=== PATIENT | male | born 1970 | race Caucasian/White ===

== ENCOUNTER 2019-09-13 19:06 | Emergency (ER) | payer BC, OTHER ==
[~2019-09-13] VITALS: Ht 168 cm; Wt 93.2 kg
[2019-09-13] MEDS ORDERED: LISI40TA (19:16)
[2019-09-13] MEDS ORDERED: CITA20TA9 (19:16)
[2019-09-13] MEDS ORDERED: HYDR25TA4 (19:16)
[2019-09-13] MEDS ORDERED: WARF-48 (19:16)
[2019-09-13 19:31] LABS: BASOPHILS % (AUTO) 0 % (0-10); EOSINOPHILS % (AUTO) 0 % (0-10); HEMATOCRIT 45 % (40-54); HEMOGLOBIN 15.9 G/DL (13.3-17.7); LYMPHOCYTES # (AUTO) 1.4 X 10^3 (1.0-4.0); LYMPHOCYTES % (AUTO) 13 % (12-44); MEAN CORPUSCULAR HEMOGLOBIN 31 PG (25-34); MEAN CORPUSCULAR HGB CONC 35 G/DL (32-36); MEAN CORPUSCULAR VOLUME 89 FL (80-99); MONOCYTES % (AUTO) 9 % (0-12); NEUTROPHILS # (AUTO) 8.6 X 10^3 (1.8-7.8); NEUTROPHILS % (AUTO) 78 % (42-75); PLATELET COUNT 234 10^3/uL (130-400); RED CELL DISTRIBUTION WIDTH 14.1 % (10.0-14.5)
[2019-09-13 19:35] LABS: CHLORIDE 101 MMOL/L (98-107); POTASSIUM 3.1 MMOL/L (3.6-5.0); SODIUM 138 MMOL/L (135-145)
[2019-09-13 19:36] LABS: BILIRUBIN,URINE NEGATIVE (NEGATIVE); CLARITY,URINE CLEAR; COLOR,URINE YELLOW; GLUCOSE, URINE (UA) NEGATIVE (NEGATIVE); KETONES,URINE NEGATIVE (NEGATIVE); LEUKOCYTE ESTERASE ,URINE NEGATIVE (NEGATIVE); NITRITE,URINE NEGATIVE (NEGATIVE); PH,URINE 6.5 (5-9); PROTEIN,URINE TRACE (NEGATIVE)
[2019-09-13 19:36] LABS: CALCIUM 8.9 MG/DL (8.5-10.1); INR 2.6 (0.8-1.4); PROTHROMBIN TIME PATIENT 29.1 SEC (12.2-14.7)
[2019-09-13 19:37] LABS: GLUCOSE 168 MG/DL (70-105); TOTAL PROTEIN 6.7 GM/DL (6.4-8.2)
[2019-09-13 19:38] LABS: CARBON DIOXIDE 24 MMOL/L (21-32)
[2019-09-13 19:39] LABS: BILIRUBIN,TOTAL 0.5 MG/DL (0.1-1.0)
[2019-09-13 19:40] LABS: ALKALINE PHOSPHATASE 55 U/L (40-136)
[2019-09-13 19:41] LABS: CREATININE SERUM 1.28 MG/DL (0.60-1.30); GFR ESTIMATED 60
[2019-09-13 19:42] LABS: BUN/CREATININE RATIO 13
[2019-09-13 19:44] LABS: ALANINE AMINOTRANSFERASE 41 U/L (0-55)
[2019-09-13 19:57] LABS: AMPHETAMINE SCREEN, URINE NEGATIVE (NEGATIVE); BARBITURATE SCREEN URINE NEGATIVE (NEGATIVE); BENZODIAZEPINES SCREEN URINE NEGATIVE (NEGATIVE); CANNABINOID SCREEN, URINE NEGATIVE (NEGATIVE); COCAINE SCREEN URINE NEGATIVE (NEGATIVE); METHADONE STAT NEGATIVE (NEGATIVE); METHAMPHETAMINE SCREEN URINE S NEGATIVE (NEGATIVE); OPIATE SCREEN URINE NEGATIVE (NEGATIVE); OXYCODONE STAT NEGATIVE (NEGATIVE); PROPOXYPHENE STAT NEGATIVE (NEGATIVE); TRICYCLIC ANTIDEPRESSANTS SCRE NEGATIVE (NEGATIVE)
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
[2019-09-13 20:04] LABS: AMORPHOUS SEDIMENT,UR RARE AMOR URATES /LPF; BACTERIA,URINE NEGATIVE /HPF
[2019-09-13] MEDS ORDERED: KCL 10 MEQ TAB (MICRO K) PO ONE (20:15)
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
[2019-09-13 20:39] VITALS: BP 116/74
--- OUTSIDE RECORDS SUMMARY | 2019-09-13 21:26 | XMS REPORT ---
Author Author Michael THOMAS Organization [facility] Address [address] [address] Care Team Providers Care Dust Collector Name Role Phone LIEN THOMAS Unavailable PROBLEMS Type Condition ICD9-CM Code IDU13-FR Code Onset Dates Condition S tatus SNOMED Code Problem Gastroesophageal reflux disease without esophagitis K21.9 Active 713583435 Problem Anticoagulant long-term use Z79.01 Ac tive [id number] ALLERGIES No Information ENCOUNTERS Encounter Location Date Diagnosis [place] [address] [place] [id number] [address] [address] [address] Apr Gastroesophageal reflux disease without esophagitis K21.9 and Anticoagulant long-term use Z79.[address] [address] Apr Gastroesophageal reflux disease without esophagitis K21.9 IMMUNIZATIONS No Known Immunizations SOCIAL HISTORY Never Assessed REASON FOR VISIT PLAN OF CARE VITAL SIGNS MEDICATIONS Medication Instructions Dosage Frequency Start Date End Date Duration S tatus Warfarin Sodium 5 MG Orally Once a day 1 tablet 24h Jun, 30 day(s) Active RESULTS No Results PROCEDURES No Known procedures INSTRUCTIONS MEDICATIONS ADMINISTERED No Known Medications MEDICAL (GENERAL) HISTORY Type Description Date Medical History hypertension Medical History factor 5 Medical History depression
--- OUTSIDE RECORDS SUMMARY | 2019-09-13 21:26 | XMS REPORT | Continuity of Care Document ---
Author Organization Unknown Address Unknown Phone Unavailable Allergies There is no data. Medications There is no data. Problems There is no data. Procedures There is no data. Results Test Result Range PT/INR - 08/10/19 08:09 INR 2.2 NRG PT 21.9 sec 9.0-11.5 PERIPHERAL BLOOD SMEAR - 09/04/19 16:34 PATHOLOGIST REVIEW OF PERIPHERAL SMEAR NRG Encounters ACCT No. Visit Date/Time Discharge Status Pt. Type Provider Facility Loc./Unit Complaint [id number] 09/04/2019 16:30:00 09/04/2019 23:59: 59 CLS Outpatient [facility] LASHANDA MELGAR [facility] [id number] 09/04/2019 16:30:00 Document Registration [id number] 08/10/2019 08:00:00 Document Registration
--- OUTSIDE RECORDS SUMMARY | 2019-09-13 21:26 | XMS REPORT ---
Author Author Michael DANIEL Organization [facility] Address [address] [address] Care Team Providers Care Building Code Administrator Name Role Phone JEANNIE DANIEL Unavailable PROBLEMS Type Condition ICD9-CM Code PDF50-FR Code Onset Dates Condition S tatus SNOMED Code Problem Gastroesophageal reflux disease without esophagitis K21.9 Active 819671626 Problem Anticoagulant long-term use Z79.01 Ac tive [id number] ALLERGIES No Information ENCOUNTERS Encounter Location Date Diagnosis [address] [address] [address] [address] [address] Apr Gastroesophageal reflux disease without esophagitis K21.9 and Anticoagulant long-term use Z79.[address] [address] Apr Gastroesophageal reflux disease without esophagitis K21.9 IMMUNIZATIONS No Known Immunizations SOCIAL HISTORY Never Assessed REASON FOR VISIT PLAN OF CARE VITAL SIGNS MEDICATIONS Medication Instructions Dosage Frequency Start Date End Date Duration S tatus Warfarin Sodium 5 MG Orally Once a day 1 tablet 24h 90 days Active RESULTS No Results PROCEDURES No Known procedures INSTRUCTIONS MEDICATIONS ADMINISTERED No Known Medications MEDICAL (GENERAL) HISTORY Type Description Date Medical History hypertension Medical History factor 5 Medical History depression
== END 2019-09-13 20:39 | disposition home or self-care (01) ==
LOC: ER 19:11
DX: S20.212A Contusion of left front wall of thorax, initial encounter (principal); S00.83XA Contusion of other part of head, initial encounter; R55 Syncope and collapse; E87.6 Hypokalemia; Z79.01 Long term (current) use of anticoagulants; Y04.0XXA Assault by unarmed brawl or fight, initial encounter
CPT/HCPCS: 36415; 70450; 71045; 72125; 80053; 80306; 80320; 81000; 84484; 85025; 85610; 93005; 93041

== ENCOUNTER 2020-11-19 11:48 | Emergency (ER) | payer BC ==
[~2020-11-19] VITALS: Ht 167 cm; Wt 95.0 kg
[~2020-11-19 11:48] MED LIST: CITA20TA9; HYDR25TA4; LISI40TA9; WARF-48
[2020-11-19 12:34] LABS: WHITE BLOOD COUNT 4.4 10^3/uL (4.3-11.0)
--- NOTE | 2020-11-19 12:34 | Diagnostic Imaging Report ---
INDICATION: Shortness of breath and Covid-19 positive. TIME OF EXAM: 12:14 PM Correlation is made with prior chest from 09/13/2019. FINDINGS: The heart size is normal. The pulmonary vascularity is unremarkable. The lungs are clear. No infiltrate, effusion or pneumothorax is detected. IMPRESSION: No acute cardiopulmonary process is detected. Dictated by: Dictated on workstation # [id number]
[2020-11-19 12:35] LABS: BASOPHILS % (AUTO) 0 % (0-10); EOSINOPHILS % (AUTO) 0 % (0-10); HEMATOCRIT 47 % (40-54); HEMOGLOBIN 16.2 G/DL (13.3-17.7); LYMPHOCYTES # (AUTO) 0.9 X 10^3 (1.0-4.0); LYMPHOCYTES % (AUTO) 21 % (12-44); MEAN CORPUSCULAR HEMOGLOBIN 31 PG (25-34); MEAN CORPUSCULAR HGB CONC 35 G/DL (32-36); MEAN CORPUSCULAR VOLUME 90 FL (80-99); MONOCYTES # (AUTO) 0.4 X 10^3 (0.0-1.0); MONOCYTES % (AUTO) 9 % (0-12); NEUTROPHILS # (AUTO) 3.1 X 10^3 (1.8-7.8); NEUTROPHILS % (AUTO) 69 % (42-75); PLATELET COUNT 151 10^3/uL (130-400)
[2020-11-19 12:56] LABS: POTASSIUM 3.3 MMOL/L (3.6-5.0); SODIUM 137 MMOL/L (135-145)
[2020-11-19 12:57] LABS: ALANINE AMINOTRANSFERASE 44 U/L (0-55); ALBUMIN 4.4 GM/DL (3.2-4.5); ALKALINE PHOSPHATASE 62 U/L (40-136); BILIRUBIN,TOTAL 0.4 MG/DL (0.1-1.0); BUN/CREATININE RATIO 13; CALCIUM 9.1 MG/DL (8.5-10.1); CARBON DIOXIDE 27 MMOL/L (21-32); CHLORIDE 97 MMOL/L (98-107); CREATININE SERUM 1.24 MG/DL (0.60-1.30); GFR ESTIMATED 62; GLUCOSE 127 MG/DL (70-105); TOTAL PROTEIN 7.3 GM/DL (6.4-8.2)
[2020-11-19 13:02] LABS: INR 1.9 (0.8-1.4); PROTHROMBIN TIME PATIENT 21.8 SEC (12.2-14.7)
[2020-11-19] MEDS ORDERED: ENOXAPARIN 100 MG/1 ML (LOVENOX) SYR SC ONE (13:15)
--- NOTE | 2020-11-19 13:17 | ED Cough/URI ---
General Chief Complaint: Respiratory Problems Stated Complaint: COVID+; COUGH; CHEST TIGHTNESS Nursing Triage Note: PT REPORTS HE WAS DIAGNOSED WITH COVID ON TUESDAY AT THE URGENT CARE. HE STARTED WITH SINUS TYPE SYMPTOMS. HE WORKED OUTSIDE AT HOME YESTERDAY AND STARTED NOTICING HE WAS GETTING SOB W/ EXERTION. HE REPORTS HIS CHEST HURTS WITH INSPIRATION. NO FEVER SINCE TUESDAY (99). Source: patient Exam Limitations: no limitations History of Present Illness Date Seen by Provider: Nov 19, 2020 Time Seen by Provider: 12:30 Initial Comments Patient is a 50-year-old Covid positive patient diagnosed 2 days ago with known history of CAD and factor V Leyden deficiency who presents with left-sided parasternal chest pain/tightness worse with deep inspiration and exertion. Patient does not have chest pain at rest or with mild exertion. Reports mild dyspnea with exertion. Reports headache, tactile fever and sweats. No nausea or vomiting. No abdominal pain. No constipation or diarrhea. Patient states symptoms feel different than his previous coronary syndrome. He is compliant with his medications and Coumadin. Denies leg pain or swelling. No other acute symptoms or complaints. Timing/Duration: yesterday, intermittent, gone now Severity/Quality: mild Prior Episodes/Possible Cause: other Modifying Factors: Improves With Other Associated Symptoms: other Allergies and Home Medications Allergies Coded Allergies: No Known Drug Allergies (Unverified , 09/13/19) Patient Home Medication List Home Medication List Reviewed: Yes Review of Systems Review of Systems Constitutional: see HPI EENTM: see HPI Respiratory: see HPI Cardiovascular: see HPI Gastrointestinal: see HPI Genitourinary: see HPI Musculoskeletal: see HPI Skin: see HPI Psychiatric/Neurological: See HPI Hematologic/Lymphatic: See HPI Immunological/Allergic: see HPI All Other Systems Reviewed Negative Unless Noted: Yes Past Hrbbtkq-Bhhmqt-Yzclyf Hx Patient Social History Tobacco Use?: No Use of E-Cig and/or Vaping dev: No Substance use?: No Alcohol Use?: Yes Alcohol type: Beer Alcohol Frequency: Couple times a week Pt feels they are or have been: No Immunizations Up To Date Tetanus Booster (TDap): Unknown Seasonal Allergies Seasonal Allergies: No Past Medical History Surgery/Hospitalization HX: PT HAS FACTOR V AND ON COUMADIN. Surgeries: Yes (laceration repair left leg) Respiratory: No Cardiac: Yes Hypertension Neurological: No Genitourinary: No Gastrointestinal: No Musculoskeletal: No Endocrine: No HEENT: No Cancer: No Psychosocial: Yes Anxiety Integumentary: No Blood Disorders: Yes (factor 5) Physical Exam Vital Signs - First Documented 11/19/20 11:48 Temp 36.4 Pulse 75 Resp 20 B/P (MAP) 126/65 (85) Pulse Ox 99 O2 Delivery Room Air Capillary Refill : Less Than 3 Seconds Height: '" Weight: lbs. oz. kg; 34.00 BMI Method: General Appearance: WD/WN Eyes: Bilateral Eye Normal Inspection, Bilateral Eye PERRL, Bilateral Eye EOMI HEENT: PERRL/EOMI, normal ENT inspection, pharynx normal Neck: non-tender, full range of motion, supple Respiratory: chest non-tender, lungs clear Cardiovascular: regular rate, rhythm Skin: normal color Focused Exam Sepsis Stage: Ruled Out Progress/Results/Core Measures Suspected Sepsis SIRS Temperature: Pulse: 75 Respiratory Rate: 20 Laboratory Tests 11/19/20 12:15: White Blood Count 4.4 Blood Pressure 126 /65 Mean: 85 Laboratory Tests 11/19/20 12:15: Creatinine 1.24, INR Comment 1.9H, Platelet Count 151, Total Bilirubin 0.4 Results/Orders Lab Results Laboratory Tests Test 11/19/20 12:15 Range/Units White Blood Count 4.4 4.3-11.0 10^3/uL Red Blood Count 5.15 4.35-5.85 10^6/uL Hemoglobin 16.2 13.3-17.7 G/DL Hematocrit 47 40-54 % Mean Corpuscular Volume 90 80-99 FL Mean Corpuscular Hemoglobin 31 25-34 PG Mean Corpuscular Hemoglobin Concent 35 32-36 G/DL Red Cell Distribution Width 13.2 10.0-14.5 % Platelet Count 151 130-400 10^3/uL Mean Platelet Volume 10.0 7.4-10.4 FL Immature Granulocyte % (Auto) 1 % Neutrophils (%) (Auto) 69 42-75 % Lymphocytes (%) (Auto) 21 12-44 % Monocytes (%) (Auto) 9 0-12 % Eosinophils (%) (Auto) 0 0-10 % Basophils (%) (Auto) 0 0-10 % Neutrophils # (Auto) 3.1 1.8-7.8 X 10^3 Lymphocytes # (Auto) 0.9 L 1.0-4.0 X 10^3 Monocytes # (Auto) 0.4 0.0-1.0 X 10^3 Eosinophils # (Auto) 0.0 0.0-0.3 10^3/uL Basophils # (Auto) 0.0 0.0-0.1 10^3/uL Immature Granulocyte # (Auto) 0.0 0.0-0.1 10^3/uL Prothrombin Time 21.8 H 12.2-14.7 SEC INR Comment 1.9 H 0.8-1.4 Sodium Level 137 135-145 MMOL/L Potassium Level 3.3 L 3.6-5.0 MMOL/L Chloride Level 97 L 98-107 MMOL/L Carbon Dioxide Level 27 21-32 MMOL/L Anion Gap 13 5-14 MMOL/L Blood Urea Nitrogen 16 7-18 MG/DL Creatinine 1.24 0.60-1.30 MG/DL Estimat Glomerular Filtration Rate 62 BUN/Creatinine Ratio 13 Glucose Level 127 H 70-105 MG/DL Calcium Level 9.1 8.5-10.1 MG/DL Corrected Calcium 8.8 8.5-10.1 MG/DL Total Bilirubin 0.4 0.1-1.0 MG/DL Aspartate Amino Transf (AST/SGOT) 32 5-34 U/L Alanine Aminotransferase (ALT/SGPT) 44 0-55 U/L Alkaline Phosphatase 62 40-136 U/L Troponin I < 0.30 <0.30 NG/ML Pro-B-Type Natriuretic Peptide 7.0 <75.0 PG/ML Total Protein 7.3 6.4-8.2 GM/DL Albumin 4.4 3.2-4.5 GM/DL My Orders Orders - AGATA ALVA DO Cbc With Automated Diff (11/19/20 12:18) Comprehensive Metabolic Panel (11/19/20 12:18) Troponin I Fs (11/19/20 12:18) Probnp Fs (11/19/20 12:18) Fibrin Degradation Products (11/19/20 12:18) Chest 1 View Ap/Pa Only (11/19/20 12:18) Protime With Inr (11/19/20 12:28) Enoxaparin Injection (Lovenox Injection) (11/19/20 13:15) Vital Signs/I&O 11/19/20 11:48 Temp 36.4 Pulse 75 Resp 20 B/P (MAP) 126/65 (85) Pulse Ox 99 O2 Delivery Room Air Capillary Refill : Less Than 3 Seconds Blood Pressure Mean: 85 Departure Communication (Admissions) EKG: Normal sinus rhythm, no acute ST-T wave changes Chest x-ray: No acute cardiopulmonary disease per radiology report Nonspecific chest pain in setting of Covid and known history of CAD. Troponin, chest x-ray unremarkable. Patient is subtherapeutic on his INR. CTA offered but declined by patient. Cannot eliminate possibility of pulmonary embolus despite stable vital signs. Lovenox given. Patient instructed to take an additional dose of Coumadin daily for the next 2 days and follow-up with his PCP in 2 days as scheduled. Patient's instructed to stay indoors and avoid all exertion. Return precautions reviewed. Patient verbalizes understanding agreement discharge instructions prior to departure. Impression Primary Impression: Chest pain Additional Impressions: COVID CAD (coronary artery disease) Factor V deficiency Subtherapeutic international normalized ratio (INR) Disposition: 01 HOME, SELF-CARE Condition: Stable Departure-Patient Inst. Decision time for Depature: 13:23 Referrals: JEANNIE DANIEL MD (PCP/Family) Primary Care Physician Add. Discharge Instructions: You were evaluated in the emergency department for chest pain. An EKG, chest x- ray, and lab work were performed and are nondiagnostic. Your INR is 1.9 which is lower than the expected 2.5. Please take an additional dose of Coumadin today and tomorrow and follow-up with your PCP on Tuesday as scheduled. Do not go outdoors and limit all exertion. In the meantime if you develop new or worsening symptoms return to the emergency department. All discharge instructions reviewed with patient and/or family. Voiced understanding. AGATA ALVA DO Nov 19, 2020 13:16
[2020-11-19 13:29] VITALS: BP 123/62
== END 2020-11-19 13:30 | disposition home or self-care (01) ==
LOC: EDUNIT# 11:48 → ER FS 11:50
DX: U07.1 COVID-19 (principal); I10 Essential (primary) hypertension; I25.10 Atherosclerotic heart disease of native coronary artery without angina pectoris; D68.2 Hereditary deficiency of other clotting factors; Z73.0 Burn-out; Z79.01 Long term (current) use of anticoagulants
CPT/HCPCS: 36415; 71045; 80053; 83880; 84484; 85025; 85379; 85610; 93005

== ENCOUNTER → 2020-11-20 | Outpatient (CLI) | payer BC ==
[~2020-11-20] MED LIST changes: +CATHETER FLUSH 10 ML SYR IV PRN; +HOLD METFORMIN - RECEIVED CONTRAST 20 ML VIAL IV SCH; +IOHEXOL 350 MG/ML 100 ML (OMNIPAQUE 350) VIAL IV ONE; +NS 100 ML (IVPB) BAG IV ONE
--- NOTE | 2020-11-20 12:34 | Diagnostic Imaging Report ---
EXAMINATION: CT chest with intravenous contrast. TECHNIQUE: Multiple contiguous axial images were obtained through the chest after the uneventful administration of intravenous contrast. All CT scans use one or more of the following dose optimizing techniques: automated exposure control, MA and/or KvP adjustment based on patient size and exam type or iterative reconstruction. HISTORY: Abnormal chest radiograph, Covid 19. COMPARISON: None available. FINDINGS: There are multifocal patchy hazy groundglass opacities consistent with Covid 19 pneumonia. The disease severity is mild. No pleural effusion. No pneumothorax. No suspicious nodules. There is no axillary or supraclavicular lymphadenopathy. There is no mediastinal lymphadenopathy. Heart size is normal. There are no coronary artery calcifications. No pericardial effusion. Aorta is normal in caliber. Limited views of the upper abdomen are unremarkable. There are no suspicious osseous lesions. IMPRESSION: 1. Mild Covid 19 pneumonia. Dictated by: Dictated on workstation # [id number]
== END ==
LOC: RAD 11:21
PROVIDERS: ATTEND Family Medicine
DX: U07.1 COVID-19 (principal); J12.82 Pneumonia due to coronavirus disease 2019; D68.9 Coagulation defect, unspecified; Z79.01 Long term (current) use of anticoagulants
CPT/HCPCS: 71260

== ENCOUNTER → 2021-03-19 | Outpatient (CLI) | payer BC ==
[~2021-03-19] MED LIST changes: -CATHETER FLUSH 10 ML SYR IV PRN; -HOLD METFORMIN - RECEIVED CONTRAST 20 ML VIAL IV SCH; -IOHEXOL 350 MG/ML 100 ML (OMNIPAQUE 350) VIAL IV ONE; -NS 100 ML (IVPB) BAG IV ONE
--- NOTE | 2021-03-19 09:03 | Diagnostic Imaging Report ---
PROCEDURE: CT chest without contrast. TECHNIQUE: Multiple contiguous axial images were obtained through the chest without the use of intravenous contrast. Auto Exposure Controls were utilized during the CT exam to meet ALARA standards for radiation dose reduction. INDICATION: COVID pneumonia. Shortness of breath. Comparison with 01/20/2021 CT chest. FINDINGS: There has been some decrease in the bilateral infiltrates and scarring. There continues to be some residual scarring however bilaterally with a linear appearance along the fissure and within the lower lobes. No acute infiltrates are definitely seen at this time. No pleural effusion or pericardial effusion. No mediastinal or hilar adenopathy of pathologic size. No blastic or lytic bony changes. IMPRESSION: Persistent interstitial disease with pleural scarring. No acute infiltrates are demonstrated. Overall appearance has improved since previous exam. Dictated by: Dictated on workstation # [id number]
== END ==
LOC: RAD FS 08:22
PROVIDERS: ATTEND Family Medicine
DX: U07.1 COVID-19 (principal)
CPT/HCPCS: 71250

== ENCOUNTER → 2021-08-26 | Outpatient (CLI) | payer BC ==
--- NOTE | 2021-08-26 14:39 | Diagnostic Imaging Report ---
PROCEDURE: CT chest without contrast. TECHNIQUE: Multiple contiguous axial images were obtained through the chest without the use of intravenous contrast. Auto Exposure Controls were utilized during the CT exam to meet ALARA standards for radiation dose reduction. INDICATION: 50-year-old male, history of Covid 19 infection, pulmonary nodule. CORRELATION: CT chest 03/19/2021. FINDINGS: There is no significant mediastinal, axillary and/or hilar lymphadenopathy on noncontrast imaging. The heart size is borderline but stable. The thoracic aortic contour is unremarkable. The GE junction is unremarkable. Wispy-like pulmonary opacities throughout both lung dick are again demonstrated. Overall, these are perhaps mildly improved and partially cleared but do persist. Definitive new areas of consolidation or overt infiltrate do not appear to be present. Some areas of slightly more focal linear scar-like formation are present. A few scattered micronodules are noted. No significant pleural effusion. There is likely mild fatty infiltration of the liver parenchyma. Mildly advanced degenerative changes of the thoracic spine are slightly accentuated by thoracic kyphosis. IMPRESSION: Persistent wispy-like pulmonary opacities are again demonstrated. Overall, these are perhaps minimally improved but do persist. These may reflect chronic changes of prior Covid pneumonia. No acute or new infiltrate-like opacity. Dictated by: Dictated on workstation # [id number]
== END ==
LOC: RAD FS 13:09
PROVIDERS: ATTEND Family Medicine
DX: R91.1 Solitary pulmonary nodule (principal); Z86.16 Personal history of COVID-19
CPT/HCPCS: 71250